=== PATIENT | male | born 1995 | race Two or more races ===

== ENCOUNTER 2022-04-22 10:39 | Emergency (ER) | payer OTHER ==
[~2022-04-22] VITALS: Ht 188 cm; Wt 109.8 kg
[2022-04-22] MEDS ORDERED: LOSARTAN POTASS25 MG PO (10:50)
[2022-04-22] MEDS ORDERED: ZITHROMAX TRI-500 MG PO (14:25)
== END 2022-04-22 14:28 | disposition home or self-care (01) ==
LOC: ER 10:39
DX: B34.9 Viral infection, unspecified (principal); I10 Essential (primary) hypertension; Z20.822 Contact with and (suspected) exposure to COVID-19